=== PATIENT | female | born 1990 | race Caucasian/White ===

== ENCOUNTER 2023-01-01 10:08 | Emergency (ER) | payer MEDICAID ==
[~2023-01-01] VITALS: Ht 170.2 cm; Wt 106.6 kg
[2023-01-01 11:03] VITALS: BP_SYST 140; PULSE 70; RESP 18; TEMP 97.8; O2SAT 98
[2023-01-01] MEDS ORDERED: AMOX500C2 PO (11:23)
[2023-01-01] MEDS ORDERED: IBUP-1971 PO (11:23)
== END 2023-01-01 11:30 | disposition home or self-care (01) ==
LOC: SED 10:08
DX: K08.89 Other specified disorders of teeth and supporting structures (principal); Z79.899 Other long term (current) drug therapy
CPT/HCPCS: 99283

== ENCOUNTER 2023-07-08 06:15 | Emergency (ER) | payer MEDICAID, OTHER ==
[~2023-07-08] VITALS: Ht 167.6 cm; Wt 99.8 kg
[~2023-07-08 06:15] MED LIST: AMOX500C2 PO; IBUP-1971 PO
[2023-07-08 06:18] VITALS: BP_SYST 124; PULSE 77; RESP 20; TEMP 97.7; O2SAT 100
[2023-07-08] MEDS: MORPHINE 4 MG INJ. 4 MG/ML VIAL IVP ONE (07:01)
[2023-07-08] MEDS: ONDANSETRON HCL 4 MG/2 ML VIAL IVP ONE (07:04)
[2023-07-08 07:06] LABS: BASOPHILS % (AUTO) 0.5 % (0.0-2.0); EOSINOPHILS # (AUTO) 0.1 K/uL (0.0-0.4); EOSINOPHILS % (AUTO) 0.9 % (0.0-4.0); HEMATOCRIT 40.2 % (36-48); HEMOGLOBIN 13.8 g/dL (12.0-16.0); LYMPHOCYTES % (AUTO) 28.9 % (20.5-51.5); MEAN CORPUSCULAR HEMOGLOBIN 29 pg (27-31); MEAN CORPUSCULAR HGB CONC 34 % (32-36); MEAN CORPUSCULAR VOLUME 85 fL (79.0-98.0); MONOCYTES # (AUTO) 0.4 K/uL (0.0-1.0); MONOCYTES % (AUTO) 5.3 % (1.7-9.3); NEUTROPHILS # (AUTO) 4.4 K/uL (1.8-7.7); NEUTROPHILS % (AUTO) 64.4 % (40.0-70.0); PLATELET COUNT (AUTO) 360 K/uL (130-430); RED BLOOD CELL COUNT(AUTO) 4.72 MIL/uL (4.2-6.2); RED CELL DISTRIBUTION WIDTH 13.1 % (9.0-15.0); WHITE BLOOD COUNT (AUTO) 6.9 K/uL (4.8-10.8)
[2023-07-08] MEDS ORDERED: HYDR-3917 PO (07:15)
[2023-07-08] MEDS ORDERED: IBUP-1970 PO (07:15)
[2023-07-08 07:42] LABS: CALCIUM 9.4 mg/dL (8.4-11.0); CREATININE 0.77 mg/dL (0.55-1.30); POTASSIUM 3.6 mmol/L (3.5-5.1)
[2023-07-08 07:49] VITALS: BP_SYST 113; PULSE 88; RESP 20; TEMP 98.2; O2SAT 99
[2023-07-08] MEDS: KETOROLAC TROMETHAMINE 30 MG VIAL IVP ONE (08:12)
== END 2023-07-08 07:57 | disposition home or self-care (01) ==
LOC: SED 06:15
DX: S93.401A Sprain of unspecified ligament of right ankle, initial encounter (principal); Z79.899 Other long term (current) drug therapy; W08.XXXA Fall from other furniture, initial encounter; Y93.89 Activity, other specified; Y92.89 Other specified places as the place of occurrence of the external cause; Y99.8 Other external cause status
CPT/HCPCS: 99284; 96374; 29515; 96375; 80048; 85025; 86886; 86900; 86901; 36415; 73610; J2405; J2270